=== PATIENT | male | born 1965 | race Caucasian/White ===

== ENCOUNTER 2016-08-02 23:49 | Emergency (ER) | payer OTHER ==
[~2016-08-02] VITALS: Ht 182.9 cm; Wt 86.4 kg
[2016-08-02 23:53] VITALS: BP 159/101; PULSE 109; RESP 16; O2SAT 98
--- NOTE | 2016-08-02 23:56 | ED.REPORT ---
HPI-Bite: Human/Animal Date of Service Aug 02, 2016 ED Provider: Shekhar Wilhelm MD Patient is a 51 year old male who presents to the ED with a cat bite to the right hand that he sustained yesterday morning at 8am. He was lifting a cat off the couch, with the cat becoming agitated and biting his hand. Since that time the bite has become increasingly swollen, red, and tender. The wound started draining fluid today. He admits to associated subjective fever and chills however he admits that he has felt unwell for the past week. Associated symptoms include myalgias and shortness of breath. Patient denies sustaining any other bites. Nursing Notes Stated Complaint: R HAND CAT BITE Chief Complaint: Skin Rash/Abscess Nursing Notes Reviewed: Yes Allergies: Coded Allergies: No Known Allergies (Unverified , 08/02/16) Scheduled Amoxicillin/Clav K 875-125 mg (Augmentin 875-125 mg) 1 Each Tablet 1 TABLET PO BID General Time Seen by MD: 23:55 Chief Complaint Cat bite Hx Obtained From: Patient Arrived By: Walk-in Onset Occurred: 2 days ago (40 hours) Symptom Duration: Since onset Location: : Hand right Severity: Current: Moderate Severity: Maximum: Moderate Recent Healthcare: No recent doctor visit, No recent hospitalization Similar Sx Previous: No Past Medical History Past Medical History dental abscess Past Surgical History left eye socket repair Smoking History Current Every Day Smoker Social History Other Social History: Local resident Ambulatory Status Independent Review of Systems Constitutional: Reports: Chills, Fever (subjective) Complete sys rev & neg: except as marked. Respiratory: Reports: Shortness of breath Musculoskeletal: Reports: Extremity pain, Extremity swelling, Myalgia Physical Exam Vital Signs Vital Signs (First) Date Time Temp Pulse Resp B/P Pulse Ox O2 Delivery O2 Flow Rate FiO2 08/02/16 23:53 36.6 109 16 159/101 98 Room Air Initial VS: Reviewed Head / Eyes: Atraumatic, Normocephalic, PERRL ENT: Conjunctiva normal, No scleral icterus Neck: Supple, Full range of motion Neurologic: Alert, Oriented, Nonfocal Psychiatric: Mood/affect normal, Behavior normal, Normal thought content General/Constitutional: Awake, Alert, No acute distress Skin: Warm, Dry Respiratory / Chest: Breath sounds NL, Breath sounds = bilat, No respiratory distress, No rales, No rhonchi, No wheezing Cardiovascular: Heart rate NL, Regular rhythm, Heart sounds NL, Cap refill not delayed, Peripheral circulation NL Upper Extremity / MS: Neurologic intact, Vascular intact Wrist / Hand: Neurologic intact, Vascular intact Puncture wound to the right thenar eminence, with 2cm of surrounding swelling and erythema. Scant purulent drainage, without fluctuant abscess. No I&D indicated. No redness or swelling extending up the extensor flexor surface of the right arm. No proximal erythema. Re-Eval/Medical Decision Med Decision/Clinical Course Patient is a 51 year old male who presents to the ED with a cat bite to the right hand that he sustained yesterday morning at 8am. He was lifting a cat off the couch, with the cat becoming agitated and biting his hand. Since that time the bite has become increasingly swollen, red, and tender. The wound started draining fluid today. He admits to associated subjective fever and chills however he admits that he has felt unwell for the past week. Associated symptoms include myalgias and shortness of breath. Patient denies sustaining any other bites. Here in the emergency department the patient is afebrile stable vital signs and examination as above. No evidence of foreign body. No evidence of abscess amenable to incision and drainage. There is some mild purulent drainage and early cellulitis without any proximal streaking erythema, redness, warmth or signs of synovitis. Patient was treated here in the emergency room with Tylenol for pain and one dose of Augmentin. He has been prescribed a 7 day course of prophylactic Augmentin and advised to keep the area clean and soak his hand in warm water. He is advised to return right away for fevers, redness, warmth, swelling or signs of abscess/cellulitis. Prior to discharge follow-up and return precautions were reviewed in detail with the patient who verbalized understanding and agreement with the plan. The patient was discharged in stable condition. Old records Re-Evaluation/Progress : Time of Eval: 00:20 Re-Evaluation/Progress Note: Patient's cat bite will be treated with Augmentin. Patient understands and agrees with the plan to be discharged home. Discharge instructions and follow-up discussed. All questions were addressed. Return to the ED warnings given. Counseled Regarding: Diagnosis, Need for follow-up, When/why to return to ED Discharge & Departure Impression: Primary Impression: Cat bite of right hand Encounter type: initial encounter Qualified Code: S61.451A - Open bite of right hand, initial encounter Additional Impression: Cellulitis of right hand Disposition: Home Discharge Condition All VS Reviewed: Yes Condition: Stable Patient Instructions: Animal Bite (ED) Additional Instructions: Thank you for seeking care at the emergency room. You were seen for the cat bite of your right hand. Our primary goal today in the ED was to evaluate you for any life-threatening conditions. Your evaluation was reassuring. You should soak your hand frequently in warm water. Make sure that it continues to drain. At this time there is no abscess that needs to be drained. You will be discharged with a prescription for Augmentin, take this for the next 7 days. Take Ibuprofen or Tylenol as needed for pain. You should follow-up with your primary doctor in the next week. You should return to the ED immediately if you develop worsening pain, increased swelling, redness, fevers, weakness or any other concerning signs or symptoms. Thank you for letting us partake in your care today. Referrals: [facility] Yariibjess Attestation Portions of this note were transcribed by Kay Box. I, Dr. Wilhelm personally performed the history, physical exam and medical decision-making; I reviewed and confirmed the accuracy of the information in the transcribed note. Signed by: Nadia Bautista, 08/03/2016 0035 copies to: [facility] Shekhar Wilhelm MD Aug 02, 2016 23:56 Kay Box Aug 03, 2016 00:20
[2016-08-03] MEDS ORDERED: AMOX-366 PO (00:04)
[2016-08-03] MEDS ORDERED: Amoxicillin-Clav 875-125 mg Tablet PO ONE (00:05)
[2016-08-03 00:41] VITALS: BP 136/90; PULSE 99; RESP 18; O2SAT 96
== END 2016-08-03 00:42 | disposition home or self-care (01) ==
LOC: SED 23:49
DX: S61.451A Open bite of right hand, initial encounter (principal); W55.01XA Bitten by cat, initial encounter; L03.113 Cellulitis of right upper limb; Y93.89 Activity, other specified; Y92.009 Unspecified place in unspecified non-institutional (private) residence as the place of occurrence of the external cause; Y99.8 Other external cause status; F17.200 Nicotine dependence, unspecified, uncomplicated

== ENCOUNTER 2016-08-11 00:13 | Emergency (ER) | payer OTHER ==
[~2016-08-11] VITALS: Ht 182.9 cm; Wt 86.4 kg
[~2016-08-11 00:13] MED LIST: AMOX-366 PO
[2016-08-11 00:30] VITALS: BP 155/95; PULSE 110; RESP 22; O2SAT 96
--- NOTE | 2016-08-11 01:01 | ED.REPORT ---
HPI-Rash / Abscess Date of Service Aug 11, 2016 ED Provider: Modesto Westfall MD Patient is a 51 year old male with a history of methamphetamine abuse and prior abscesses who presents to the ED with a red tender swollen area to his left forearm that developed in the past 24 hours. Patient admits that his arm started swelling several days ago, but it only became red and painful in the past 24 hours. The patient previously had a similar wound, which also developed rapidly and required ICU admission. He also had a small pustule on his forearm yesterday which he popped, prior to the abscess developing. In addition he states that he used a strong solvent to do some cleaning last week and that he had several sores on his arm afterwards.Patient denies a history MRSA but states that he had a "flesh eating bacteria". The patient admits to methamphetamine abuse, last use 48 hours ago. He admits to occasionally using methamphetamine IV and that he cannot remember when he last did so. Patient denies a history of heroin abuse. He is current homeless. Nursing Notes Stated Complaint: LEFT ARM PAIN/SWELLING Chief Complaint: Skin Rash/Abscess Nursing Notes Reviewed: Yes Allergies: Coded Allergies: No Known Allergies (Unverified , 08/02/16) Scheduled Amoxicillin/Clav K 875-125 mg (Augmentin 875-125 mg) 1 Each Tablet 1 TABLET PO BID General Time Seen by MD: 00:59 Chief Complaint Red area, Tender/swollen area Hx Obtained From: Patient Arrived By: Walk-in Onset Occurred: 21 - 23 hours ago Symptom Duration: Since onset Location: : Arm Quality: Painful Severity: Current: Moderate Severity: Maximum: Severe Recent Healthcare: No recent doctor visit, No recent hospitalization Similar Sx Previous: Yes Past Medical History Past Medical History dental abscess history of abscesses due to "flesh eating bacteria" Past Surgical History left eye socket repair Smoking History Current Every Day Smoker Social History Other Social History: Local resident, Homeless Ambulatory Status Independent Review of Systems Constitutional: Denies: Chills, Fever Musculoskeletal: Reports: Extremity pain (due to cellulitis), Extremity swelling Skin: Reports Rash Complete sys rev & neg: except as marked. Physical Exam Physical Exam Notes: Initial Vital Signs Vital Signs (First) Date Time Temp Pulse Resp B/P Pulse Ox O2 Delivery O2 Flow Rate FiO2 08/11/16 00:30 37.6 110 22 155/95 96 Room Air Initial VS: Reviewed, Vital signs normal Neck: Supple, Full range of motion Neurologic: Alert, Oriented, Nonfocal Psychiatric: Mood/affect normal, Behavior normal General/Constitutional: Awake, Alert, No acute distress dirty Skin: Warm, Dry Rash / Lesion Pattern: Negative: Track meeks Head / Eyes: Normocephalic, PERRL ENT: Airway patent Respiratory / Chest: Breath sounds NL, Breath sounds = bilat, No respiratory distress, No rales, No rhonchi, No wheezing Cardiovascular: Heart rate NL, Regular rhythm Upper Extremity / MS: No deformity, Neurologic intact, Vascular intact Left forearm: quarter sized area of darkened violaceous skin with some suppurative oozing. 4-6cm of surrounding erythema. Skin breaks but no infections in the hand. Dirty. Interpretation & Diagnostics Lab Results Interpretation Result Diagram: 08/11/16 0140 08/11/16 0140 Test 08/11/16 01:40 White Blood Count 12.6th/mm3 (3.8-10.1) Red Blood Count 4.41mil/mm3 (4.40-5.80) Hemoglobin 12.9g/dL (13.8-17.2) Hematocrit 39.1% (41.0-50.0) Mean Corpuscular Volume 88.7fL (81-100) Mean Corpuscular Hemoglobin 29.3pg (27.0-35.0) Mean Corpuscular Hemoglobin Concent 33.0% (32.0-37.0) Red Cell Distribution Width 13.9% (12.3-15.4) Platelet Count 336bil/L (150-400) Neutrophils (%) (Auto) 78.6% (40-74) Lymphocytes (%) (Auto) 11.0% (14-46) Monocytes (%) (Auto) 9.2% (4-12) Eosinophils (%) (Auto) 0.9% (0-5) Basophils (%) (Auto) 0.1% (0-3) Sodium Level 138mEq/L (134-144) Potassium Level 3.9mEq/L (3.5-5.2) Chloride Level 102mEq/L (97-108) Carbon Dioxide Level 22mmol/L (18-29) Blood Urea Nitrogen 16mg/dL (6-24) Creatinine 0.85mg/dL (0.76-1.27) Estimat Glomerular Filtration Rate 101mL/min (>59) Glucose Level 117mg/dL (60-99) Lactic Acid Level 0.7mmol/L (0.4-2.0) Calcium Level 8.3mg/dL (8.5-10.1) Magnesium Level 2.0mg/dL (1.6-2.6) Total Bilirubin 0.3mg/dL (0.0-1.2) Aspartate Amino Transf (AST/SGOT) 13U/L (0-50) Alanine Aminotransferase (ALT/SGPT) 11U/L (0-44) Alkaline Phosphatase 71U/L (25-150) Total Protein 6.9g/dL (6.4-8.4) Albumin 3.5g/dL (3.4-5.0) Lab Results Interpretation: Mildly elevated white blood count, cultures pending Re-Eval/Medical Decision Med Decision/Clinical Course 51-year-old male with a left arm cellulitis and a small draining abscess. He has a history of serious infections of this sort. He was given IV clindamycin and discharged on clindamycin. He does not want to stay in the hospital as he has court commitment to take care of today. He will return for recheck tonight. Source of Hx: Old records Re-Evaluation/Progress #1: Time of Eval: 03:28 Patient Status: Condition improved Re-Evaluation/Progress Note: Rechecked the patient. He is sleeping in bed comfortably. Re-Evaluation/Progress #2: Time of Eval: 05:13 Patient Status: Condition improved Re-Evaluation/Progress Note: Rechecked the patient. Discussed the results of his labs. Discussed possible hospital admit. Patient is requesting to be discharged, as he has a court date in [place] that he needs to make. He will be discharged with antibiotics. Patient understands and agrees with the plan. Discharge instructions and follow-up discussed. All questions were addressed. Return to the ED warnings given. Counseled Regarding: Diagnosis, Lab results, Need for follow-up, When/why to return to ED Discharge & Departure Impression: Primary Impression: Cellulitis of left arm Disposition: Home Discharge Condition All VS Reviewed: Yes Condition: Stable Patient Instructions: Cellulitis (ED) Additional Instructions: The arm is infected. There is no obvious fluid collection that can be drained. Recommend that we recheck it this evening after 9 PM. It may need draining at that time. Clindamycin 900 mg IV to be followed by clindamycin 300 mg 4 times a day, prepack dispensed. Warm compresses. Referrals: [facility] Scribe Attestation Portions of this note were transcribed by Kay Box. I, Dr. Westfall personally performed the history, physical exam and medical decision-making; I reviewed and confirmed the accuracy of the information in the transcribed note. Signed by: Kay Box, Scribe, 08/11/2016 0530 Modesto Westfall MD Aug 11, 2016 01:01 Kay Box Aug 11, 2016 01:03
[2016-08-11] MEDS ORDERED: Clindamycin Inj 900 MG in IV Premix 1 EACH IV ONE (01:15)
[2016-08-11] MEDS ORDERED: 0.9% Sodium Chloride 1,000 ML IV ONE (01:15)
[2016-08-11 01:52] LABS: BASOPHILS % (AUTO) 0.1 % (0-3); EOSINOPHILS % (AUTO) 0.9 % (0-5); MONOCYTES % (AUTO) 9.2 % (4-12); Mean Corpuscular Hemoglobin 29.3 pg (27.0-35.0); Mean Corpuscular Volume 88.7 fL (81-100); NEUTROPHILS % (AUTO) 78.6 % (40-74); Platelet Count 336 bil/L (150-400)
[2016-08-11 04:41] VITALS: BP 126/72; PULSE 95; RESP 20; O2SAT 95
[2016-08-11 05:56] VITALS: BP 131/83; PULSE 93; RESP 16; O2SAT 96
[2016-08-11] MEDS ORDERED: _Clindamycin 150 mg Capsule PO SCH (06:30)
== END 2016-08-11 05:57 | disposition home or self-care (01) ==
LOC: SED 00:13
DX: L03.114 Cellulitis of left upper limb (principal); F15.20 Other stimulant dependence, uncomplicated; F17.200 Nicotine dependence, unspecified, uncomplicated; Z59.0 Homelessness; Z86.14 Personal history of Methicillin resistant Staphylococcus aureus infection
CPT/HCPCS: 36415; 80053; 83605; 83735; 85025; 87040; 87070; 87077; 87147; 87186; 87205; 96365; 96375; 99284; J1885; J7030

== ENCOUNTER 2016-08-11 21:45 | Inpatient (IN) | payer OTHER ==
[~2016-08-11] VITALS: Ht 182.9 cm; Wt 99.9 kg
[2016-08-11 21:54] VITALS: BP 157/90; PULSE 122; RESP 16; O2SAT 96
--- NOTE | 2016-08-11 22:41 | ED.REPORT ---
HPI-Extremity Problem Upper Date of Service Aug 11, 2016 ED Provider: Modesto Westfall MD Patient is a 51 year old male with a history of methamphetamine abuse, prior abscesses and possible history of necrotizing fasciitis who presents to the ED with worsening pain, redness, and swelling of his left forearm onset 2 days ago. Patient was seen in the ED last night for cellulitis and was given IV clindamycin. He declined hospital admission, as he had a court date today. He was discharged on clindamycin and now returns for a recheck. He states that his arm has become more swollen, red, and painful since he left the ED this morning. The redness has spread outside of the line drawn prior to discharge, moving up his arm. He states that his hand has become swollen now as well. The patient admits to an associated subjective fever and chills. Nursing Notes Stated Complaint: FOLLOW UP, LEFT ARM INFECTION Chief Complaint: Wound Recheck/Suture Removal Nursing Notes Reviewed: Yes Allergies: Coded Allergies: No Known Allergies (Unverified , 08/11/16) Scheduled Amoxicillin/Clav K 875-125 mg (Augmentin 875-125 mg) 1 Each Tablet 1 TABLET PO BID General Time Seen by MD: 22:37 Chief Complaint Arm injury left Hx Obtained From: Patient Arrived By: Walk-in Onset Occurred: 2 days ago Symptom Duration: Since onset Location: : Forearm left Quality: Painful Severity: Current: Moderate Severity: Maximum: Moderate Recent Healthcare: No recent hospitalization, Recent doctor visit Similar Sx Previous: Yes Past Medical History Past Medical History dental abscess history of abscesses due to "flesh eating bacteria" ?necrotizing fasciitis, with hospital admission Past Surgical History left eye socket repair Smoking History Current Every Day Smoker Social History Drug Use: Meth Other Social History: Local resident, Homeless Ambulatory Status Independent Review of Systems Constitutional: Reports: Fever (subjective), Denies: Chills Musculoskeletal: Reports: Extremity pain, Extremity swelling Complete sys rev & neg: except as marked. Physical Exam Physical Exam Notes: Initial Vital Signs Vital Signs (First) Date Time Temp Pulse Resp B/P Pulse Ox O2 Delivery O2 Flow Rate FiO2 08/11/16 21:54 37.0 122 16 157/90 96 Room Air Initial VS: Reviewed, Unavailable, Vital signs abnormal Head / Eyes: Atraumatic, Normocephalic, PERRL ENT: Conjunctiva normal, No scleral icterus Neck: Supple, Full range of motion Neurologic: Alert, Oriented, Nonfocal Psychiatric: Mood/affect normal, Behavior normal, Normal thought content General/Constitutional: Awake, Alert, No acute distress Patient is much more alert compared to evaluation yesterday Neck: Supple, Full range of motion Respiratory / Chest: Breath sounds NL, Breath sounds = bilat, No respiratory distress, No rales, No rhonchi, No wheezing Cardiovascular: Regular rhythm, Cap refill not delayed Heart Rate / Rhythm: Positive: Tachycardia Upper Extremity / MS: Neurologic intact, Vascular intact Left forearm: Quarter sized area of darkened violaceous skin with some suppurative oozing. Leading edge of the erythema has extending 6 cm beyond the line drawn this morning. Skin is dirty. Wrist / Hand: Neurologic intact, Vascular intact Left Hand: Positive: Swelling present... (more pronounced compared to when evaluated yesterday) Skin breaks but no infections of the left hand. Hand is dirty. Skin: Color NL, Warm, Dry Interpretation & Diagnostics CT EXTREMITY - LEFT UPPER IMPRESSION: Extensive diffuse subcutaneous edema consistent with cellulitis with a small localized collection adjacent to the middle suspicious for early abscess. Radiologist: Uyen Chu MD 08/12/2016 - 2:04:49 AM PDT Lab Results Interpretation Result Diagram: 08/11/16 2255 08/11/16 2255 Test 08/11/16 22:55 White Blood Count 9.1th/mm3 (3.8-10.1) Red Blood Count 4.41mil/mm3 (4.40-5.80) Hemoglobin 12.9g/dL (13.8-17.2) Hematocrit 39.6% (41.0-50.0) Mean Corpuscular Volume 89.8fL (81-100) Mean Corpuscular Hemoglobin 29.3pg (27.0-35.0) Mean Corpuscular Hemoglobin Concent 32.6% (32.0-37.0) Red Cell Distribution Width 13.8% (12.3-15.4) Platelet Count 307bil/L (150-400) Neutrophils (%) (Auto) 71.5% (40-74) Lymphocytes (%) (Auto) 16.8% (14-46) Monocytes (%) (Auto) 10.9% (4-12) Eosinophils (%) (Auto) 0.5% (0-5) Basophils (%) (Auto) 0.1% (0-3) Sodium Level 135mEq/L (134-144) Potassium Level 3.6mEq/L (3.5-5.2) Chloride Level 101mEq/L (97-108) Carbon Dioxide Level 21mmol/L (18-29) Blood Urea Nitrogen 13mg/dL (6-24) Creatinine 0.74mg/dL (0.76-1.27) Estimat Glomerular Filtration Rate 119mL/min (>59) Glucose Level 104mg/dL (60-99) Lactic Acid Level 0.9mmol/L (0.4-2.0) Calcium Level 8.5mg/dL (8.5-10.1) Magnesium Level 2.0mg/dL (1.6-2.6) Total Bilirubin 0.3mg/dL (0.0-1.2) Aspartate Amino Transf (AST/SGOT) 13U/L (0-50) Alanine Aminotransferase (ALT/SGPT) 11U/L (0-44) Alkaline Phosphatase 68U/L (25-150) Total Protein 7.0g/dL (6.4-8.4) Albumin 3.6g/dL (3.4-5.0) Procalcitonin 0.06ng/mL (0.00-0.08) Lab values outside NL range: no clinical significance. Lab Results Interpretation: White blood count is lower than yesterday, lactic acid is normal. Re-Eval/Medical Decision Med Decision/Clinical Course After 1-year-old male IV drug user presents for follow-up from yesterday's visit for left arm cellulitis. Yesterday he was given IV clindamycin and discharged with clindamycin orally. He was offered admission yesterday because of his concerning history for necrotizing fasciitis in the past, but felt that he could not come in because he had a court commitment in [facility]. He returns now because of chills, and extension of the cellulitic area beyond the leading edges. His white count is lower and his lactic acid is not elevated. Blood and wound cultures are pending. CT scan showed no evidence of significant abscess or necrotizing fasciitis. He was given vancomycin and Zosyn and will be admitted for further IV antibiotics. Source of Hx: Old records Re-Evaluation/Progress : Time of Eval: 23:00 Re-Evaluation/Progress Note: Informed the patient of the plan for hospital admission. Will order a CT scan of his arm to rule out any acute process. Patient understands and agrees with this plan. All questions were addressed. Consultation : Referral / Consult Name: Joana Douglas DO Consulted With: Hospitalist Call Returned at: 02:33 Remote Inpatient Coder: Will see patient, Agrees with eval, Agrees with plan, Accepts admit Note: Spoke with Dr. Douglas, hospitalist, who agrees to accept admit. Counseled Regarding: Diagnosis, Lab results, Need for admission Discharge & Departure Impression: Primary Impression: Abscess of left arm Disposition: ADMITTED TO HOSPITAL Discharge Condition All VS Reviewed: Yes Condition: Stable Scribe Attestation Portions of this note were transcribed by Kay Box. I, Dr. Westfall personally performed the history, physical exam and medical decision-making; I reviewed and confirmed the accuracy of the information in the transcribed note. Signed by: Nadia Bautista, 08/12/2016 0310 Modesto Westfall MD Aug 11, 2016 22:41 Kay Box Aug 11, 2016 22:48
[2016-08-11] MEDS ORDERED: 0.9% Sodium Chloride 1,000 ML IV ONE (22:46)
[2016-08-11] MEDS ORDERED: Vancomycin Dose per Pharmacist XX ONE (22:50)
[2016-08-11] MEDS ORDERED: Piperacillin-Tazo 3.375 Gm Inj 3.375 GM in Dextrose 5% Minibag Plus 50 ML IV ONE (22:50)
[2016-08-11] MEDS ORDERED: Vancomycin Inj 1,750 MG in 0.9% Sodium Chloride 500 ML IV ONE (23:00)
[2016-08-11 23:04] LABS: BASOPHILS % (AUTO) 0.1 % (0-3); EOSINOPHILS % (AUTO) 0.5 % (0-5); MONOCYTES % (AUTO) 10.9 % (4-12); Mean Corpuscular Hemoglobin 29.3 pg (27.0-35.0); Mean Corpuscular Volume 89.8 fL (81-100); NEUTROPHILS % (AUTO) 71.5 % (40-74); Platelet Count 307 bil/L (150-400)
[2016-08-11 23:40] VITALS: BP 145/90; PULSE 110; RESP 19; O2SAT 95
[2016-08-12] MEDS ORDERED: HYDROmorphone 0.5 mg/0.5 mL iSecure Syringe IVPUSH PRN (00:55)
[2016-08-12] MEDS ORDERED: Ondansetron 2 mg/mL 2 mL Inj IVPUSH PRN (02:40)
[2016-08-12] MEDS ORDERED: Polyethylene Glycol (PEG) 17 Gm Powder PO PRN (02:40)
[2016-08-12] MEDS ORDERED: Alum-Mag Hydrox-Simeth 30 mL Suspension PO PRN (02:40)
[2016-08-12] MEDS: 0.9% Sodium Chloride 1,000 ML IV SCH ×3 (03:18→23:40)
--- NOTE | 2016-08-12 03:18 | PCM.HPMED ---
Subjective Date of Service Aug 12, 2016 Primary Provider: Admitting Physician: Joana Douglas DO Primary Care Physician: Meet Attending Physician: Joana Douglas DO Admit Status: From the Emergency Department, Remote Telemetry Chief Complaint: Left upper extremity cellulitis with suspected abscess formation History of Present Illness: Mr. Ivy is a 51-year-old gentleman with a history of methamphetamine use, history of prior abscesses, and history of suspected necrotizing fasciitis, that presented to the emergency department with a three-day history of left upper extremity swelling, redness, and tenderness, that was previously discharged from the ED with oral clindamycin secondary to refusal for admission. He states he is now ready to be admitted to the hospital, and will be evaluated and treated for left upper extremity cellulitis with early abscess formation in a patient with a history of methamphetamine use. Hospital day 1 Mr. Ivy last admits to using methamphetamines approximately 5 days prior to this admission, although he denies ongoing IV drug use. He denies any history of heroin use, or alcohol use; he does admit to daily tobacco use approximately one pack per day. At time of admission, he was resistant to talking about his history of drug use, but did admit to recent use of methamphetamines 5 days ago as noted prior. He did confirm that his left upper extremity wound was not initiated by a cat bite, as his previous wound on his right hand that was noted during a previous ER visit approximately a week and a half ago. Patient denies any trauma to the area, denies any insect bites, animal bites, scratches or needle insertions. He notes that the lesion has been present for the recent 3-4 days, has not improved, and is quite painful. He states he was able to fill the prescription that was provided at the ER visit yesterday, but denies any improvement of the symptoms. Patient does admit to fever, chills; denies any nausea, vomiting, abdominal pain, diarrhea, constipation. He also admitted to left upper extremity tenderness. He denied any ongoing symptoms of his right upper extremity which experienced an injury approximately a week and a half ago secondary to a Bite. He denies any lesions on any other region of his body. He does note a history of a similar incidences years ago, where he states he was seen at [facility], for "flesh eating bacteria." Mr. Ivy is also accompanied by a longtime friend, who confirms that over the recent days, he has been experiencing fevers, chills, increased pain, and she has noticed the area become more swollen and reddened. This friend is concerned about his health and well-being, and was encouraging him to be more open during our interview. In the ED, T 36.6, pulse 91, respiratory rate 17, blood pressure 141/75, 94% on room air; initial labs revealed WBC 9.1, hemoglobin 12.9, platelets 307; electrolytes within reference range, creatinine 0.74, lactic acid 0.9, LFTs within range. CT left forearm reveals extensive diffuse subcutaneous edema consistent with cellulitis with a small localized collection adjacent to middle of lesion suspicious for early abscess formation, there was a fairly localized collection noted to be adjacent to the mid ulna along the ulnar surface that measures approximately 1.71.0 cm; there were no abnormal air collection in the soft tissues, no fracture, no cortical destruction or lytic lesions. This was a [facility] reading, final report pending. Blood cultures were obtained 08/11 when he was first seen in the emergency department and refused admission at that time, and his blood cultures are currently no growth to date was a gel swab that was also completed of the wound which also has no growth to date. Of note, patient was given a 7 day prescription for Augmentin on 08/02/2016 for Bite of his right hand, of which, he states he has completed. He was transferred in stable condition to [place]. Review of Systems: Complete ROS obtained; pertinent positives and negatives as noted above Allergies Coded Allergies: No Known Allergies (Unverified , 08/11/16) Home Medications Patient denies use of any prescribed medications other than the recent antibiotic prescription provided at ED visit 08/11/2016 - 08/11: Patient was given clindamycin 900 mg IV, followed by clindamycin 300 mg 4 times daily; patient states compliance to this medication Patient denies any other medications PMH Patient reports history of similar Multiple abscesses Dental abscesses Distant history of IV drug use Current methamphetamine use Ongoing tobacco use Patient denies any cardiac, pulmonary, GI conditions Surgical History Patient reports multiple incision and drainage of other abscesses Per chart review; left eye repair Family History no family history of cardiac / pulmonary / GI pathology Social History Hx Alcohol Use: No Hx Substance Use: Yes (METH OCCAS) Hx Tobacco Use: Yes Smoking Status: Current Every Day Smoker (approximately 1 pack per day) Living Arrangement: Homeless Exam Vital Signs Vital Sign - Last Date Time Temp Pulse Resp B/P Pulse Ox O2 Delivery O2 Flow Rate FiO2 08/12/16 02:46 36.6 91 17 141/75 94 Room Air Intake and Output 08/11/16 08/11/16 08/12/16 Cumulative From/Thru 15:00 23:00 07:00 08/11/16 21:54 - 08/11/16 23:41 Intake Total 1000 ml 1000 ml Balance 1000 ml 1000 ml Intake IV Total 1000 ml 1000 ml Exam General: Disheveled appearing gentleman lying supine in bed in no acute distress HEENT: Atraumatic, sclera anicteric, mucous membranes moist Neck: Soft, full ROM chin to chest Cardiac: Tachycardic with rate approx 90 at time of eval; no murmurs appreciated Respiratory: Good inspiratory effort, adequate air flow all rangel; faint wheeze upper rangel Abdomen: Soft, nontender, nondistended Extremities: Multiple areas of previous minor trauma of scratches, abrasions in various stages of healing of bilateral upper extremities; left upper extremity quite notable for a wound on the posterior medial aspect of the left forearm that is approximately 3-4 cm in diameter that appears purulent, with surrounding erythema and swelling that extends from digits to elbow; capillary refill less than 2 seconds; notable pain also appreciated with palpation of the area; right upper extremity notable for wounds that do not appear erythematous or purulent Pulses: Radial equal and intact; posterior tibialis equal and intact MSK: Patient is able to move forward 4 extremities against gravity, able to transition with minimal assistance Neuro: Cranial nerves II through XII grossly intact, speech without slur, facial expressions were symmetric Psych: Appropriate answers to questioning, although patient was somewhat standoffish when asked questions, notably about his history of drug use Lab and Diagnostics Result Diagram: 08/11/16225408/11/162254 Assessment & Plan Mr. Ivy is a 51-year-old gentleman with a history of methamphetamine use, history of prior abscesses, and history of suspected necrotizing fasciitis, that presented to the emergency department with a three-day history of left upper extremity swelling, redness, and tenderness, that was previously discharged from the ED with oral clindamycin secondary to refusal for admission. He states he is now ready to be admitted to the hospital, and will be evaluated and treated for left upper extremity cellulitis with early abscess formation in a patient with a history of methamphetamine use. Hospital day 1 Left upper extremity cellulitis, purulent, acute, present on admission. Ongoing - Seen in ED 08/11; given clindamycin 900 mg IV plus clindamycin oral 300 mg 4 times daily - CT 08/12: Extensive diffuse subcutaneous edema consistent with cellulitis and a small localized collection suspicious for early abscess formation - Blood cultures obtained 08/11: No growth to date - Gel swab of abscess 08/11, also no growth to date - Consider surgical consultation in morning for evaluation for incision and drainage - Abx in ED: Vanco plus Zosyn - Antibiotics to continue: Continue Vanco for MRSA coverage, plus Zosyn for additional strep coverage and Pasteurella with h/o cat bite - Consider surgical consultation in a.m. to evaluate for incision and drainage - Wound care consultation order placed - NPO at this time - Telemetry monitoring for any signs of decompensation; patient did not meet SIRS criteria on admission History of methamphetamine use, chronicity unknown. Ongoing - Patient admits to last use 5 days prior to admission - Does not admit to ongoing IV use, although patient was reluctant to discuss this during admission - Patient also reported to be homeless - NEWS LIBRARIAN consultation PRN fever/bowel/nausea/pain DVT: SCDs only this time secondary to pending procedures Diet: Nothing by mouth at this time GI: Not indicated CODE STATUS: Full code Patient status: Due to severity of presenting symptoms, likely course of care, and risk of adverse events, anticipated length of stay > 2 midnights; patient admitted as inpatients status with remote telemetry Pain Evaluation: Adequate Pain Control GI Prophylaxis: Not indicated VTE Prophylaxis: SCDs Resuscitation Status: CPR: Attempt Resuscitation Attending Statement The patient was seen and examined together with house staff on 08/12/2016 and I agree with the history, exam and plan as outlined in the note above. Sharron Orourke DO Aug 12, 2016 03:18 Joana Douglas DO Aug 12, 2016 05:17
[2016-08-12] MEDS ORDERED: HYDROmorphone 1 mg/mL Inj IVPUSH PRN (03:35)
[2016-08-12] MEDS: Vancomycin Dose per Pharmacist XX SCH ×2 (03:35→08:30)
[2016-08-12 04:00] VITALS: BP 135/80; PULSE 89; RESP 18; O2SAT 94
--- NOTE | 2016-08-12 04:50 | NUR ---
Admit Patient arrived to room 1017 at 0310 A/Ox3. L arm/hand edematous, wound open to air. Elevated L arm on pillow. Patient appears drowsy but responsive, denies pain. Med rec and admission complete. VSS, NS infusing at 100/hr. Nasal MRSA swab sent. Addendum: 08/12/16 at 0539 by GUERITA MCCRAY RN Contact Precautions Contact precautions in place for pending MRSA and patient report of necrotizing fasciitis history.
[2016-08-12 05:45] VITALS: PULSE 88
[2016-08-12 06:08] LABS: BASOPHILS % (AUTO) 0.1 % (0-3); EOSINOPHILS % (AUTO) 1.9 % (0-5); MONOCYTES % (AUTO) 13.3 % (4-12); Mean Corpuscular Hemoglobin 29.2 pg (27.0-35.0); Mean Corpuscular Volume 90.5 fL (81-100); NEUTROPHILS % (AUTO) 61.2 % (40-74); Platelet Count 282 bil/L (150-400)
--- NOTE | 2016-08-12 06:19 | DRSVH ---
PROCEDURE: CT FOREARM LEFT WITH CONTRAST (23476) INDICATIONS: worsening cellulitis, hx nec fasciitis TECHNIQUE: After the administration of intravenous contrast, 3 mm axial sections acquired of the left forearm, w ith coronal and sagittal reformats. For radiation dose reduction, the following was used: automated exposure control, adjustment of mA and/or kV according to patient size. COMPARISON: None. FINDINGS: Image quality: Excellent. Bones: Osseous structures are intact. No evidence of fracture or dislocation. Soft tissues: There is prominent subcutaneous fat stranding within the forearm more prominent along t he ulnar volar surface. There is a localized fluid collection adjacent to the mid ulnar measuring hope roximately 1.7 x 1.0 cm with small amount of peripheral enhancement. Overlying skin thickening is pre sent. No focal air is identified within the soft tissues. Vascular structures are within normal limit s. IMPRESSION: 1. Extensive diffuse subcutaneous Findings are suggestive of edema. However, developing areas of airs pace disease such as atelectasis and/or pneumonia cannot be excluded. Throughout the forearm extending to level of the wrist consistent with cellulitis. There is a small l ocalized collection as described above suspicious for abscess. No visualized necrotizing fasciitis. Dictated by: Aminata Richter M.D. on 08/12/2016 at 6:13 Approved by: Aminata Richter M.D. on 08/12/2016 at 6:17
--- NOTE | 2016-08-12 06:36 | PCM.CONPHA ---
Subjective Date of Service: Aug 12, 2016 Requesting Provider: Sharron Orourke DO Left upper extremity cellulitis with suspected abscess formation History of Present Illness cellulitis, failed outpatient po Augmentin Reason for Pharmacy Consult: Vancomycin Dosing Objective Vital Signs Date Time Temp Pulse Resp B/P Pulse Ox O2 Delivery O2 Flow Rate FiO2 08/12/16 04:00 37.0 89 18 135/80 94 Room Air 08/12/16 02:46 36.6 91 17 141/75 94 Room Air 08/11/16 23:40 110 19 145/90 95 Room Air 08/11/16 21:54 37.0 122 16 157/90 96 Room Air Intake and Output 08/10/16 08/11/16 08/12/16 00:00 00:00 00:00 Intake Total 1000 ml Balance 1000 ml Weight (Kilograms): 99.870 Height (Feet): 6 Height (Inches): 0.00 Test 08/11/16 22:55 White Blood Count 9.1th/mm3 (3.8-10.1) Red Blood Count 4.41mil/mm3 (4.40-5.80) Hemoglobin 12.9g/dL (13.8-17.2) Hematocrit 39.6% (41.0-50.0) Mean Corpuscular Volume 89.8fL (81-100) Mean Corpuscular Hemoglobin 29.3pg (27.0-35.0) Mean Corpuscular Hemoglobin Concent 32.6% (32.0-37.0) Red Cell Distribution Width 13.8% (12.3-15.4) Platelet Count 307bil/L (150-400) Neutrophils (%) (Auto) 71.5% (40-74) Lymphocytes (%) (Auto) 16.8% (14-46) Monocytes (%) (Auto) 10.9% (4-12) Eosinophils (%) (Auto) 0.5% (0-5) Basophils (%) (Auto) 0.1% (0-3) Sodium Level 135mEq/L (134-144) Potassium Level 3.6mEq/L (3.5-5.2) Chloride Level 101mEq/L (97-108) Carbon Dioxide Level 21mmol/L (18-29) Blood Urea Nitrogen 13mg/dL (6-24) Creatinine 0.74mg/dL (0.76-1.27) Estimat Glomerular Filtration Rate 119mL/min (>59) Glucose Level 104mg/dL (60-99) Lactic Acid Level 0.9mmol/L (0.4-2.0) Calcium Level 8.5mg/dL (8.5-10.1) Magnesium Level 2.0mg/dL (1.6-2.6) Total Bilirubin 0.3mg/dL (0.0-1.2) Aspartate Amino Transf (AST/SGOT) 13U/L (0-50) Alanine Aminotransferase (ALT/SGPT) 11U/L (0-44) Alkaline Phosphatase 68U/L (25-150) Total Protein 7.0g/dL (6.4-8.4) Albumin 3.6g/dL (3.4-5.0) Procalcitonin 0.06ng/mL (0.00-0.08) Assessment/Plan Assessment/Plan A/ - 51 y/o male patient came back late last night 08/11 for worsening "cat bite " which was the reason he checked in ED earlier and refused to be admitted after given one dose of clindamycin iv. Patient reported to completed 7 days of Augmentin on 08/02. He has distant history of IVDU, occasional using methamphetamine, smoker, hx of suspected necrotizing fasciitis, multiple abscesses, dental abscesses. - In ED, loading dose Vancomycin 1750mg iv and Zosyn given and to be continued. - Afebrile, WBC: 9.1, blood cultures obtained in earlier on 08/11 showed no growth last 24hrs. NPO overnight with plan to have I&D in the morning - Wt: 90.9, ht: 183 cm, Scr: 0.74 mg/dL, estimated clearance ~ 130 ml/min; BMI: 29.9 kg/m2, Vd~64L P/ - Give Vancomycin 1250 mg iv q8h. Trough level ordered before 4th dose @ 2300. This regimen would produce a trough around 15 Pharmacy will continue to follow and make necessary adjustment Thank you for consulting clinical pharmacy in the care of this patient Moe Ramirez, DeonD, [facility] Trey Ramirez Aug 12, 2016 06:36
[2016-08-12 07:56] VITALS: PULSE 90
[2016-08-12] MEDS: Heparin 5,000 Unit/mL Inj SUBQ SCH ×3 (08:30→16:08)
[2016-08-12] MEDS: Vancomycin Inj 1,250 MG in 0.9% Sodium Chloride 250 ML IV SCH ×2 (09:12→16:22)
[2016-08-12] MEDS: Piperacillin-Tazo 3.375 Gm Inj 3.375 GM in Dextrose 5% Minibag Plus 50 ML IV SCH ×2 (09:13→16:07)
--- NOTE | 2016-08-12 11:36 | CONS ---
[address] [address] CONSULTATION REPORT PATIENT: KAYLA CHAMBERLAIN : 1965 MR#: [id number] ADMIT: 08/12/2016 JOB ID: [id number] DATE OF SERVICE: 08/12/2016 HISTORY OF PRESENT ILLNESS: I have been asked by the hospitalist service to consult on this 51-year-old man with left arm infection, possible abscess. HISTORY OF PRESENT ILLNESS: The patient tells me that he has had left upper extremity swelling, redness and tenderness primarily in the forearm for roughly five days including one visit to the emergency department where he had admission recommended to him. He returned last night to the hospital and was admitted to the Medicine service. PAST MEDICAL HISTORY: IV drug use in the past, current methamphetamine use, history of multiple skin abscesses and dental abscesses, tobacco addiction. DIRECTED PHYSICAL EXAMINATION: The patient has left forearm cellulitis with some lymphangitic streaking and palpable lymph nodes in the left axilla. He has a one area where the skin is sloughing and with pressure there is weeping of edematous fluid but I cannot appreciate any clear area of purulence that needs to be drained. IMAGING: Upper extremity CT scan was done last night. It demonstrates cellulitis and findings consistent with soft tissue infection with a possible 1.7 x 1.0 cm abscess in the mid ulnar area. IMPRESSION AND PLAN: I do not really appreciate that the patient has drainable pus at this point, and I would recommend continuing his IV antibiotics, elevation of his left arm and anticipating that he will continue to improve dramatically over the next 24 hours. I will let him eat today, make him n.p.o. after midnight tonight and re-evaluate him first thing in the morning to see if there is indeed a drainable abscess that becomes apparent or increases in size during the course of the antibiotics with resolution of cellulitis and swelling.
[2016-08-12 13:00] VITALS: PULSE 93
[2016-08-12 13:34] VITALS: BP 148/85; PULSE 100; RESP 20; O2SAT 95
--- NOTE | 2016-08-12 15:51 | NUR ---
left forearm lesion is beginning to ooze serous fluid, surrounding area of erythema has receded some, according to pt and also pen markings. entire arm is swollen and also has a couple of swollen nymph nodes axillary area
--- NOTE | 2016-08-12 16:15 | NUR ---
/Social Work- Brief Note Data: EMR reviewed. Pt is a 51 year old male admitted 08/12/16 for right arm cellulitis per H&P. Pt's insurance is [employer]. Pt has no PCP listed at this time. SW met with pt at bedside regarding discharge plan, SW role explained. Pt was very sleepy during this conversation, pt not able to maintain the conversation. Per chart review and brief conversation, [place] Pt was not connected with any shelters prior to hospitalization. Pt is independent at baseline. Pt has a history of meth use, pt reports date of last use 3-4 days ago. Pt reports that he is interested in stopping using meth, but pt was unable to maintain conversation surrounding this topic as he was incredibly sleepy. Pt interested in signing [facility] for CDP, though he was unable to complete the MAR[facility]Z at this time. Pt has no DPOA on file, SW to follow up with pt regarding this. [facility] [place] SW will follow up with pt and provide resources when pt is able to maintain conversation. Assessment: Pt who [place] independent [place]. Plan: Pt interested in chatting the CDP from [facility], [facility] will need to be obtained. [facility], SW will follow up with pt and provide resources when pt is able to maintain conversation. Jazmín Cho MSW
[2016-08-12 19:10] VITALS: BP 156/96; PULSE 84; RESP 18; O2SAT 98
[2016-08-12] MEDS ORDERED: Vancomycin Serum Trough XX ONE (23:00)
[2016-08-13 00:05] VITALS: BP 146/90; PULSE 81; RESP 16; O2SAT 97
[2016-08-13] MEDS: Piperacillin-Tazo 3.375 Gm Inj 3.375 GM in Dextrose 5% Minibag Plus 50 ML IV SCH ×3 (00:22→16:39)
[2016-08-13] MEDS: Heparin 5,000 Unit/mL Inj SUBQ SCH ×3 (00:28→17:57)
[2016-08-13] MEDS ORDERED: Vancomycin Inj 1,750 MG in 0.9% Sodium Chloride 500 ML IV ONE (00:30)
[2016-08-13 05:17] VITALS: PULSE 98
[2016-08-13 05:58] VITALS: BP 151/91; PULSE 84; RESP 18; O2SAT 98
--- NOTE | 2016-08-13 06:18 | NUR ---
wound per previous nurse, kerlix was placed around pts arm because the wound had serous drainage. this nurse took down the dressing to examine. the wound had white sloughing but no signs of drainage on dressing. arm is red and swollen but noticeably less so then the previous black pen markings. a warm compress was placed on wound and it was elevated on pillows. no signs of drainage this shift. when asked about pain pt states that he has "some pain" but is able to quickly fall asleep. no pain medications given at this time. pt has been NPO since midnight for possible surgery. care continues.
--- NOTE | 2016-08-13 06:44 | PCM.PHAPRO ---
Progress Date of Service: Aug 13, 2016 Requesting Provider: Sharron Orourke DO Left upper extremity cellulitis with suspected abscess formation a/ - Patient is receiving Vancomycin 1250mg iv q8 and Zosyn for cellulitis. No I& D as planned, will re-evaluate the plan in the morning - Negative MRSA screen - All doses given on time and trough drawn appropriately, but trough level showed low at 7.7, target level 10 - 15 p/ - Give one time booster dose Vancomycin 1750mg @0030, then 1500mg iv q8. Floor pharmacist will order next trough level if the therapy to be continued. Thank you Trey Ramirez Aug 13, 2016 06:44
[2016-08-13] MEDS: Vancomycin Dose per Pharmacist XX SCH (08:30)
--- NOTE | 2016-08-13 08:30 | PCM.PNMED ---
Subjective Date of Service Aug 13, 2016 Subjective Patient seen and examined. Denies any fever or chills overnight. Slept good. Happy that Dr Kirkland states he does not need any surgery today Exam Vital Signs Vital Sign - Last Date Time Temp Pulse Resp B/P Pulse Ox O2 Delivery O2 Flow Rate FiO2 08/13/16 05:58 37.0 84 18 151/91 98 Room Air Intake and Output 08/12/16 08/12/16 08/13/16 Cumulative From/Thru 15:00 23:00 07:00 08/11/16 21:54 - 08/13/16 05:58 Intake Total 2809 ml 250 ml 4311 ml Output Total 1800 ml 1350 ml 3900 ml Balance 1009 ml -1100 ml 411 ml Intake Oral 1500 ml 250 ml 1750 ml IV Total 1309 ml 2561 ml Output Urine Total 1800 ml 1350 ml 3900 ml # Voids 2 # Bowel Movements 0 0 Exam General: Disheveled appearing gentleman HEENT: Atraumatic, sclera anicteric, mucous membranes moist Neck: Soft, full ROM chin to chest Cardiac: Tachycardic no murmurs appreciated Respiratory: Good inspiratory effort, adequate air flow all rangel; faint wheeze upper rangel Abdomen: Soft, nontender, nondistended Extremities: Multiple areas of previous minor trauma of scratches, abrasions in various stages of healing of bilateral upper extremities; left upper extremity quite notable for a wound on the posterior medial aspect of the left forearm that is approximately 3-4 cm in diameter that appears purulent, with surrounding erythema and swelling that extends from digits to elbow. swelling much improved and erythema also receding Pulses: Radial equal and intact; posterior tibialis equal and intact Neuro: Cranial nerves II through XII grossly intact, speech without slur, facial expressions were symmetric IVs and Medications Medications Reviewed: Medications were reviewed in detail Lab and Diagnostics Laboratory Tests Test 08/12/16 23:22 Vancomycin Level Trough 7.7mcg/mL Microbiology 08/12/16 MRSA (PCR) - Final, Complete Result Diagram: 08/12/16 0550 08/12/16 0550 Assessment & Plan Mr. Ivy is a 51-year-old gentleman with a history of methamphetamine use, history of prior abscesses, and history of suspected necrotizing fasciitis, that presented to the emergency department with a three-day history of left upper extremity swelling, redness, and tenderness, that was previously discharged from the ED with oral clindamycin secondary to refusal for admission. Hospital day 2 1. Left upper extremity cellulitis, purulent, acute, present on admission. Ongoing and persistent - CT 08/12: Extensive diffuse subcutaneous edema consistent with cellulitis and a small localized collection suspicious for early abscess formation - Antibiotics to continue: Continue Vanco for MRSA coverage, plus Zosyn for additional strep coverage and Pasteurella with h/o cat bite - monitor for renal failure due to antibiotics combination - Surgical consultation with Dr Kirkland, consideration for incision and drainage - Wound care care to apply dressing - Telemetry monitoring for any signs of decompensation; patient did not meet SIRS criteria on admission 2. History of methamphetamine use, chronicity unknown. Ongoing - Patient admits to last use 5 days prior to admission - Does not admit to ongoing IV use, although patient was reluctant to discuss this during admission - Patient also reported to be homeless - POWER GENERATING PLANT OPERATOR consultation to provide resources PRN fever/bowel/nausea/pain DVT: SCDs only this time secondary to pending procedures Diet: Nothing by mouth at this time GI: Not indicated CODE STATUS: Full code Patient status: Due to severity of presenting symptoms, likely course of care, and risk of adverse events, anticipated length of stay > 2 midnights; patient admitted as inpatients status with remote telemetry . GI Prophylaxis: Not indicated VTE Prophylaxis: SCDs Resuscitation Status: CPR: Attempt Resuscitation Andrew Villarreal MD Aug 13, 2016 07:50 Andrew Villarreal MD Aug 13, 2016 07:50
[2016-08-13] MEDS: 0.9% Sodium Chloride 1,000 ML IV SCH (10:40)
[2016-08-13] MEDS: Vancomycin Inj 1,500 MG in 0.9% Sodium Chloride 500 ML IV SCH ×2 (12:04→21:24)
--- NOTE | 2016-08-13 13:16 | PROG NOTE ---
[address] [address] PROGRESS NOTE PATIENT: KAYLA CHAMBERLAIN : 1965 MR#: [id number] ADMIT: 08/12/2016 JOB ID: [id number] DATE: 08/13/2016 The patient is afebrile, stable vital signs. On inspection, his cellulitis and ascending lymphangitis is markedly improved. He had still does have some erythema around a central area of desquamated blistered skin. However, there is no fluctuance or expressible pus; only subcutaneous edema. IMPRESSION AND PLAN: I believe he is responding to intravenous antibiotics with resolving cellulitis and no area of drainable abscess differentiating itself. I will let him eat breakfast and continue him on his intravenous antibiotics. I do not anticipate that he will require surgical intervention, though General Surgery will continue to follow him for another few days.
[2016-08-13 15:03] VITALS: BP 135/86; PULSE 84; RESP 16; O2SAT 96
--- NOTE | 2016-08-13 16:22 | NUR ---
Social Work- Attempted Chemical Dependency Assessment Data: EMR reviewed. Pt is on day 1 of hospitalization for right arm cellulitis per H&P. Pt is receiving IV abx, no surgical intervention required at this time. Pt is not stable for discharge, anticipate multiple more days of hospitalization. SW attempted to complete Chemical Dependency Assessment with pt at bedside. Pt was not able to be woken up, despite multiple attempts at verbal interaction. Pt opened his eyes very briefly but was not responding appropriately, mumbling and not engaged. Pt is not appropriate for an assessment at this time. Pt likely to discharge to [facility], SW will follow up with pt and provide resources when pt is appropriate. Assessment: Pt who is independent at base. Plan: Pt is not appropriate for a Chemical Dependency Assessment at this time. Pt likely to discharge to [facility], SW will follow up with pt and provide resources when pt is appropriate. Jazmín Cho MSW
--- NOTE | 2016-08-13 19:12 | NUR ---
Wound L arm wound with serous drainage and erythema. Pt showered and wound cleaning. Telfa and Kerlix applied. Pt reports decreased swelling this afternoon, specifically in his hands and wrist. Pt has denied pain all day. Arm elevated on pillow when in bed.
[2016-08-13 19:26] VITALS: BP 159/88; PULSE 94; RESP 18; O2SAT 98
[2016-08-14] MEDS: 0.9% Sodium Chloride 1,000 ML IV SCH ×2 (00:05→04:37)
[2016-08-14] MEDS: Piperacillin-Tazo 3.375 Gm Inj 3.375 GM in Dextrose 5% Minibag Plus 50 ML IV SCH ×2 (00:05→09:09)
[2016-08-14] MEDS: Heparin 5,000 Unit/mL Inj SUBQ SCH ×2 (01:47→09:09)
--- NOTE | 2016-08-14 04:27 | NUR ---
activity/wound pt has had an uneventful night. dressing to L forearm remains c/d/i with minimal drainage. pt has been encouraged to keep it elevated while in bed. he has denied pain. he stated that he feels encouraged that the swelling has decreased in his hands. care continues.
[2016-08-14 05:00] VITALS: BP 147/95; PULSE 79; RESP 18; O2SAT 94
[2016-08-14] MEDS: Vancomycin Inj 1,500 MG in 0.9% Sodium Chloride 500 ML IV SCH (05:24)
[2016-08-14] MEDS: Vancomycin Dose per Pharmacist XX SCH (08:30)
--- NOTE | 2016-08-14 09:09 | PCM.PNSURG ---
Subjective Date of Service: August 14, 2016 Visit Information: Reason for Visit Right Arm Cellulitis Surgery/Surgery Date Post-Op Day # Date of Admission: Aug 12, 2016 at 02:34 Hospital Day #3 Subjective: No complaints of pain. The patient feels that the wound is improving, redness and axillary discomfort have resolved. Left upper extremity edema is improving. The patient is requesting discharge from the hospital. Postop General: No Complaints Gastrointestinal: Good Appetite, Tolerating Oral Feedings, No N/V Pain Management: No or Minimal Pain Postop Activity: Ambulating Independently, Ambulating in Room Only Objective Objective No left axillary adenopathy to palpation. No left axillary tenderness to palpation. No asending red streak from the left forearm lesion and no surrounding erythema. Moderate left forearm edema is noted. Left forearm wound has serous and modest purulent drainage with surrounding epidermolysis. Vital Sign- Last 8 Hours Date Time Temp Pulse Resp B/P Pulse Ox O2 Delivery O2 Flow Rate FiO2 08/14/16 05:00 36.4 79 18 147/95 94 Room Air Intake and Output- Last 8 Hour 08/14/16 Cumulative From/Thru 07:00 08/11/16 21:54 - 08/14/16 06:06 Intake Total 1943 ml 99639 ml Output Total 820 ml 7420 ml Balance 1123 ml 3724 ml Intake Oral 713 ml 4463 ml IV Total 1230 ml 6681 ml Output Urine Total 820 ml 7420 ml # Voids 2 # Bowel Movements 0 0 General: Alert, Cooperative, No Acute Distress Lungs: Clear to Auscultation Heart: Regular Rate/Rhythm (distant) Extremities: Thigh&Calf Soft/Nontender Neuro: Normal Speech Catheters: None Result Diagram: 08/12/16 0550 08/12/16 0550 Assessment & Plan Impression Primary diagnosis: Left forearm cellulitis with no drainable abscess. HD #3, on IV antibiotics with resolving symptoms. No surgical intervention required at this time. Other chronic conditions: 1. History of multiple abscesses 2. Dental abscesses 3. History of IV drug use 4. Current methamphetamine use 5. Daily cigarette smoker Problems: Plan 1. Local wound care as discussed with the patient. Cleaned with soap and water , pat dry, apply dry dressing twice a day and when necessary. 2. Transition to oral antibiotics. 3. Surgery will sign off. Please reconsult as needed. VTE Prophylaxis: SCDs Resuscitation Status: CPR: Attempt Resuscitation Santiago Weir PA-C August 14, 2016 09:09
--- NOTE | 2016-08-14 10:46 | PCM.DIMED ---
Discharge Instructions Date of Service August 14, 2016 Dates of Hospitalization Aug 12, 2016 at 02:34 Discharge Diagnosis Discharge Diagnosis Right arm abscess, 8 cm on dorsal lower R arm, Hx of cat bite Medication Instructions Please complete the clindamycin as prescribed by the ER prior to your admission and f/u with [facility] in one week. Diet No restrictions Activity No restrictions Call your provider Fever or Chills, Shortness of breath, Bleeding, Chest pain, Vomitting, Excessive diarrhea, Weakness (unilateral) Patient Instructions Keep the wound dry and clean. May use warm compresses for pain relief and swelling Follow-up plan F/U with [facility]/residency clinic in one week Tg Davis DO August 14, 2016 10:46
[2016-08-14] MEDS ORDERED: CLIN-78 PO (10:48)
--- NOTE | 2016-08-14 10:56 | NUR ---
Social Work-discharge: SW updated by guide changer that pt is leaving AMA. ROSINA Ramsey
--- NOTE | 2016-08-14 10:57 | PCM.DC.MED ---
Discharge Summary Date of Service August 14, 2016 Dates of Hospitalization Date of Hospital Admission Aug 12, 2016 at 02:34 Date of Discharge: August 14, 2016 Providers: Admitting Physician: Joana Douglas DO Primary Care Physician: Meet Attending Physician: Joana Douglas DO Diagnosis at Time of Discharge Diagnosis at Time of Discharge Right arm abscess, 8 cm on dorsal lower R arm, Hx of cat bite, hypertension, methamphetamine abuse, tobacco abuse Consultations General Surgery Procedures XRay, CTs & MRIs PROCEDURE: CT FOREARM LEFT WITH CONTRAST (31435) INDICATIONS: worsening cellulitis, hx nec fasciitis TECHNIQUE: After the administration of intravenous contrast, 3 mm axial sections acquired of the left forearm, with coronal and sagittal reformats. For radiation dose reduction, the following was used: automated exposure control, adjustment of mA and/or kV according to patient size. COMPARISON: None. IMPRESSION: 1. Extensive diffuse subcutaneous Findings are suggestive of edema. However, developing areas of airspace disease such as atelectasis and/or pneumonia cannot be excluded. Throughout the forearm extending to level of the wrist consistent with cellulitis. There is a small localized collection as described above suspicious for abscess. No visualized necrotizing fasciitis. Dictated by: Aminata Richter M.D. on 08/12/2016 at 6:13 Approved by: Aminata Richter M.D. on 08/12/2016 at 6:17 Brief History Mr. Ivy is a 51-year-old gentleman with a history of methamphetamine use, history of prior abscesses, and history of suspected necrotizing fasciitis, that presented to the emergency department with a three-day history of left upper extremity swelling, redness, and tenderness, that was previously discharged from the ED with oral clindamycin secondary to refusal for admission. He states he is now ready to be admitted to the hospital, and will be evaluated and treated for left upper extremity cellulitis with early abscess formation in a patient with a history of methamphetamine use. Hospital day 1 Mr. Ivy last admits to using methamphetamines approximately 5 days prior to this admission, although he denies ongoing IV drug use. He denies any history of heroin use, or alcohol use; he does admit to daily tobacco use approximately one pack per day. At time of admission, he was resistant to talking about his history of drug use, but did admit to recent use of methamphetamines 5 days ago as noted prior. He did confirm that his left upper extremity wound was not initiated by a cat bite, as his previous wound on his right hand that was noted during a previous ER visit approximately a week and a half ago. Patient denies any trauma to the area, denies any insect bites, animal bites, scratches or needle insertions. He notes that the lesion has been present for the recent 3-4 days, has not improved, and is quite painful. He states he was able to fill the prescription that was provided at the ER visit yesterday, but denies any improvement of the symptoms. Patient does admit to fever, chills; denies any nausea, vomiting, abdominal pain, diarrhea, constipation. He also admitted to left upper extremity tenderness. He denied any ongoing symptoms of his right upper extremity which experienced an injury approximately a week and a half ago secondary to a Bite. He denies any lesions on any other region of his body. He does note a history of a similar incidences years ago, where he states he was seen at [facility], for "flesh eating bacteria." Mr. Ivy is also accompanied by a longtime friend, who confirms that over the recent days, he has been experiencing fevers, chills, increased pain, and she has noticed the area become more swollen and reddened. This friend is concerned about his health and well-being, and was encouraging him to be more open during our interview. In the ED, T 36.6, pulse 91, respiratory rate 17, blood pressure 141/75, 94% on room air; initial labs revealed WBC 9.1, hemoglobin 12.9, platelets 307; electrolytes within reference range, creatinine 0.74, lactic acid 0.9, LFTs within range. CT left forearm reveals extensive diffuse subcutaneous edema consistent with cellulitis with a small localized collection adjacent to middle of lesion suspicious for early abscess formation, there was a fairly localized collection noted to be adjacent to the mid ulna along the ulnar surface that measures approximately 1.71.0 cm; there were no abnormal air collection in the soft tissues, no fracture, no cortical destruction or lytic lesions. This was a [facility] reading, final report pending. Blood cultures were obtained 08/11 when he was first seen in the emergency department and refused admission at that time, and his blood cultures are currently no growth to date was a gel swab that was also completed of the wound which also has no growth to date. Of note, patient was given a 7 day prescription for Augmentin on 08/02/2016 for Bite of his right hand, of which, he states he has completed. He was transferred in stable condition to [facility]. Hospital Course Mr. Ivy is a 51-year-old gentleman with a history of methamphetamine use, history of prior abscesses, and history of suspected necrotizing fasciitis, that presented to the emergency department with a three-day history of left upper extremity swelling, redness, and tenderness, that was previously discharged from the ED with oral clindamycin secondary to refusal for admission. Hospital day 2 1. Left upper extremity cellulitis, purulent, acute, present on admission. Ongoing and persistent - CT 08/12: Extensive diffuse subcutaneous edema consistent with cellulitis and a small localized collection suspicious for early abscess formation - Antibiotics to continue: Continue Vanco for MRSA coverage, plus Zosyn for additional strep coverage and Pasteurella with h/o cat bite: Patient states on that he has completed the augmentin course he was given. Pharmacy verified that he filled it on the 07/16/16. He is given clindamycin by the ER for ten days , he still has the tablets. I have discussed the fact that he is risking bacteremia, sepsis by leaving here. He signed out AMA stating he understands the risks of bacteremia, spesis and even . He will f/u at [facility] residency clinic in one week. May use warm compresses for pain relief/swelling. - Surgical consultation with Dr Kirkland, consideration for incision and drainage : Surgery does not feel patient needs procedural intervention. - Wound care care to apply dressing 2. History of methamphetamine use, chronicity unknown. Ongoing - Patient admits to last use 5 days prior to admission - Does not admit to ongoing IV use, although patient was reluctant to discuss this during admission - Patient also reported to be homeless - [employer] consultation to provide resources 3. Tobacco abuse: -- PCP is requested to consult the patient on tobacco abuse. Patient has left AMA. 4. Hypertension -- Patient has been hypertensive during this admission. Patient has left AMA before we had a chance to initiate therapy. We request that the PCP addresses starting him on hydrochlorothiazide or chlorthalidone. PRN fever/bowel/nausea/pain DVT: SCDs only this time secondary to pending procedures Diet: Nothing by mouth at this time GI: Not indicated CODE STATUS: Full code Exam Vital Signs (Last) Date Time Temp Pulse Resp B/P Pulse Ox O2 Delivery O2 Flow Rate FiO2 08/14/16 05:00 36.4 79 18 147/95 94 Room Air Exam General: NAD, laying in bed, some what restless male Eyes: [place] conjunctivae. No ptosis Neck: No masses, trachea midline, no thyromegaly Lungs: CTA with normal respiratory effort, no crackles or wheezes CV: RRR, no murmurs/rubs/gallops, normal PMI GI: Nondistended MSK: Normal gait and station, no digital cyanosis. Noticeably swollen left upper extremity especially over the forearm. There is a 8 cm draining ulcer over the dorsum of the forearm on the right side Psych: A&O X3, with appropriate affect Neuro: Mildly anxious Test 08/11/16 22:55 08/12/16 05:50 08/12/16 23:22 Lactic Acid Level 0.9mmol/L (0.4-2.0) Magnesium Level 2.0mg/dL (1.6-2.6) Total Bilirubin 0.3mg/dL (0.0-1.2) Aspartate Amino Transf (AST/SGOT) 13U/L (0-50) Alanine Aminotransferase (ALT/SGPT) 11U/L (0-44) Alkaline Phosphatase 68U/L (25-150) Total Protein 7.0g/dL (6.4-8.4) Albumin 3.6g/dL (3.4-5.0) White Blood Count 8.0th/mm3 (3.8-10.1) Red Blood Count 4.55mil/mm3 (4.40-5.80) Hemoglobin 13.3g/dL (13.8-17.2) Hematocrit 41.2% (41.0-50.0) Mean Corpuscular Volume 90.5fL (81-100) Mean Corpuscular Hemoglobin 29.2pg (27.0-35.0) Mean Corpuscular Hemoglobin Concent 32.3% (32.0-37.0) Red Cell Distribution Width 14.0% (12.3-15.4) Platelet Count 282bil/L (150-400) Neutrophils (%) (Auto) 61.2% (40-74) Lymphocytes (%) (Auto) 23.4% (14-46) Monocytes (%) (Auto) 13.3% (4-12) Eosinophils (%) (Auto) 1.9% (0-5) Basophils (%) (Auto) 0.1% (0-3) Sodium Level 140mEq/L (134-144) Potassium Level 3.7mEq/L (3.5-5.2) Chloride Level 105mEq/L (97-108) Carbon Dioxide Level 21mmol/L (18-29) Blood Urea Nitrogen 10mg/dL (6-24) Creatinine 0.65mg/dL (0.76-1.27) Estimat Glomerular Filtration Rate 138mL/min (>59) Glucose Level 105mg/dL (60-99) Calcium Level 8.5mg/dL (8.5-10.1) Procalcitonin 0.07ng/mL (0.00-0.08) Vancomycin Level Trough 7.7mcg/mL Discharge Medications Discharge Medications Clindamycin (Clindamycin) 300 Mg Capsule 300 MG PO QID Prescribed by: TG NEAL DO Additional med instructions Please complete the clindamycin as prescribed by the ER prior to your admission and f/u with [facility] in one week. Followup Plan Follow-up plan F/U with [facility]/residency clinic in one week Discharge Diet: No restrictions Discharge Activity: No restrictions Patient Instructions Keep the wound dry and clean. May use warm compresses for pain relief and swelling Tg Neal DO August 14, 2016 10:49
--- NOTE | 2016-08-14 11:04 | NUR ---
AMA Patient left AMA. notified. IV DC'd and intact. Dressing CDI. Nurse informed patient of risks going AMA which includes but not limited to increased infection, sepsis, and . Patient acknowledged the risks and signed AMA paperwork. Security notified, closet unlocked. Patient gathered belongings. GOLD MINER escorted patient out via walking.
[2016-08-14] MEDS ORDERED: Vancomycin Inj 1,500 MG in 0.9% Sodium Chloride 500 ML IV SCH (13:30)
== END 2016-08-14 11:00 | disposition left against medical advice (07) | DRG 603 ==
LOC: SED 21:45 → OBSVTOIN 08-12 02:34 → OSC 08-12 02:34
PROVIDERS: ADMIT Internal Medicine; ATTEND Internal Medicine
DX: L03.114 Cellulitis of left upper limb (principal); F15.10 Other stimulant abuse, uncomplicated; L02.414 Cutaneous abscess of left upper limb; F17.200 Nicotine dependence, unspecified, uncomplicated; Z59.0 Homelessness; W55.01XA Bitten by cat, initial encounter; Y92.9 Unspecified place or not applicable